=== PATIENT | female | born 1990 | race Caucasian/White ===

== ENCOUNTER 2024-06-16 17:42 | Observation (INO) | payer OTHER ==
[2024-06-16 18:35] VITALS: RESP 18
[2024-06-16] MEDS: ELECTROLYTE-148 SOLN 1,000 ML IV SCH (21:00)
[2024-06-16 21:25] VITALS: BMI 24.3
[2024-06-16 21:29] LABS: ABSOLUTE IMMATURE GRANULOCYTES 0.02 x10^3/uL (0.0-0.031); BASOPHILS # 0.01 x10^3/uL (0.01-0.08); EOSINOPHIL % 0.2 % (0.7-5.8); EOSINOPHILS # 0.01 x10^3/uL (0.04-0.36); HEMATOCRIT 35.7 % (34.1-44.9); HEMOGLOBIN 11.5 g/dL (11.2-15.7); MCHC 32.2 g/dl (32.2-35.5); MEAN CELL VOLUME 87.9 fl (79.4-94.8); MEAN PLT VOLUME 10.6 fl (9.4-12.3); MONOCYTE % 5.3 % (4.7-12.5); PLATELET COUNT 316 x10^3/uL (182-369); RDW 13.1 % (12.1-16.8)
[2024-06-16 21:30] LABS: PH,URINE 6.5 (5.0-8.0); URINE APPEARANCE CLEAR; URINE BILIRUBIN NEGATIVE (NEGATIVE); URINE COLOR YELLOW; URINE GLUCOSE (UA) NEGATIVE (NEGATIVE); URINE KETONE TRACE (NEGATIVE); URINE LEUK ESTERASE NEGATIVE (NEGATIVE); URINE NITRITE NEGATIVE (NEGATIVE); URINE PROTEIN NEGATIVE (NEGATIVE); URINE UROBILINOGEN 0.2 mg/dL (0.2-1.0)
[2024-06-16 21:35] LABS: INR 0.97 (0.83-1.09); PROTHROMBIN TIME (PATIENT) 10.7 SEC (9.7-13.0)
[2024-06-16 21:56] LABS: POTASSIUM 4.1 mmol/L (3.5-5.1)
[2024-06-16 21:58] LABS: BLOOD UREA NITROGEN 8.3 mg/dL (7-18)
[2024-06-16 22:02] LABS: CREATININE 0.3 mg/dL (0.55-1.3)
[2024-06-17 04:23] VITALS: TEMP 98.2
[2024-06-17 07:16] VITALS: BP 110/60; PULSE 65
== END 2024-06-17 10:00 | disposition home or self-care (01) ==
LOC: JDEL 17:42 → JLDR 20:00
PROVIDERS: ADMIT Obstetrics & Gynecology; ATTEND Obstetrics & Gynecology
PROC: 3E0337Z Introduction of Electrolytic and Water Balance Substance into Peripheral Vein, Percutaneous Approach (ICD-10-PCS; principal; 2024-06-16)
DX: O41.03X0 Oligohydramnios, third trimester, not applicable or unspecified (principal); Z3A.31 31 weeks gestation of pregnancy
CPT/HCPCS: 0241U-QW; 36415; 59025; 76819-TC; 80048; 81003; 85025; 85610; 85730; 86780; 86850; 86900; 86901; 87086; 96360; G0378

== ENCOUNTER 2024-07-06 13:50 | Inpatient (IN) | payer OTHER ==
[2024-07-06 14:40] LABS: URINE APPEARANCE CLEAR; URINE BILIRUBIN NEGATIVE (NEGATIVE); URINE COLOR YELLOW; URINE GLUCOSE (UA) NEGATIVE (NEGATIVE); URINE KETONE NEGATIVE (NEGATIVE); URINE LEUK ESTERASE NEGATIVE (NEGATIVE); URINE NITRITE NEGATIVE (NEGATIVE); URINE PROTEIN NEGATIVE (NEGATIVE); URINE UROBILINOGEN 0.2 mg/dL (0.2-1.0)
[2024-07-06 15:19] LABS: COCAINE, UR NEGATIVE (NEGATIVE); URINE AMPHETAMINES NEGATIVE (NEGATIVE); URINE BARBITURATES NEGATIVE (NEGATIVE); URINE BENZODIAZEPINES NEGATIVE (NEGATIVE)
[2024-07-06 15:20] LABS: METHADONE, UR NEGATIVE (NEGATIVE); OPIATES, URI NEGATIVE (NEGATIVE); PHENCYCLIDINE,URINE NEGATIVE (NEGATIVE)
[2024-07-06 15:31] VITALS: BMI 26.4
[2024-07-06 15:31] LABS: ABSOLUTE IMMATURE GRANULOCYTES 0.02 x10^3/uL (0.0-0.031); BASOPHILS # 0.02 x10^3/uL (0.01-0.08); EOSINOPHIL % 0.9 % (0.7-5.8); EOSINOPHILS # 0.06 x10^3/uL (0.04-0.36); HEMATOCRIT 38.7 % (34.1-44.9); HEMOGLOBIN 12.6 g/dL (11.2-15.7); MCHC 32.6 g/dl (32.2-35.5); MEAN CELL VOLUME 86.8 fl (79.4-94.8); MEAN PLT VOLUME 10.8 fl (9.4-12.3); MONOCYTE # 0.47 x10^3/uL (0.24-0.86); MONOCYTE % 7.2 % (4.7-12.5); PLATELET COUNT 339 x10^3/uL (182-369); RDW 13.5 % (12.1-16.8)
[2024-07-06 15:32] LABS: Reticulocyte % 2.52 % (0.5-1.7)
[2024-07-06 15:39] LABS: INR 0.95 (0.83-1.09); PROTHROMBIN TIME (PATIENT) 10.5 SEC (9.7-13.0)
[2024-07-06 15:42] LABS: ACTIVATED PTT 29.4 SECONDS (25.2-36.5)
[2024-07-06 15:50] LABS: CALCIUM 10.4 mg/dL (8.5-10.1)
[2024-07-06 15:51] LABS: BLOOD UREA NITROGEN 9.3 mg/dL (7-18)
[2024-07-06 15:54] LABS: CREATININE 0.5 mg/dL (0.55-1.3); URIC ACID 3.8 mg/dL (2.6-7.2)
[2024-07-06] MEDS: DINOPROSTONE 10 MG VAGINAL SUPPOSITORY VG STA (16:00)
[2024-07-06] MEDS: ACETAMINOPHEN 325 MG TABLET (FP) PO ONE (16:28)
[2024-07-06] MEDS: LABETALOL HCL 200 MG TABLET (FP) PO SCH (16:30)
[2024-07-06 16:53] LABS: HCV DIAGNOSTIC IN-HOUSE W/RFLX NON-REACTIVE (NONREACTIVE)
[2024-07-06] MEDS: ELECTROLYTE-148 SOLN 1,000 ML IV SCH (18:15)
[2024-07-06] MEDS ORDERED: AMPICILLIN SODIUM 2 GM VIAL ONE (18:17)
[2024-07-06] MEDS: AMPICILLIN - 2 GM in SODIUM CHLORIDE 100 ML IVPB ONE (18:20)
[2024-07-06] MEDS ORDERED: LIDOCAINE HCL 1% PRESERVATIVE FREE - 30ML VIAL ONE (21:24)
[2024-07-06] MEDS ORDERED: OXYTOCIN 20 UNITS in 0.9% NS 20 UNIT/1,000 ML INFUS.BAG IV ONE ×2 (21:24→21:29)
[2024-07-06] MEDS: OXYTOCIN 20 UNITS in 0.9% NS 20 UNIT/1,000 ML INFUS.BAG IV SCH (21:30)
[2024-07-06] MEDS ORDERED: BISACODYL 10 MG SUPP.RECT RC PRN (21:42)
[2024-07-06] MEDS ORDERED: ACETAMINOPHEN 325 MG TABLET (FP) PO PRN (21:42)
[2024-07-06] MEDS ORDERED: WITCH HAZEL 50% (TUCKS) 40 PAD/JAR PAD TP PRN (21:42)
[2024-07-06] MEDS ORDERED: BENZOCAINE 20% 57 GM BOTTLE TP PRN (21:42)
[2024-07-06] MEDS ORDERED: BENZOCAINE 28 GM HEMORRHOIDAL OINTMENT TP PRN (21:42)
[2024-07-06] MEDS ORDERED: METHYLERGONOVINE MALEATE 0.2 MG/1 ML AMP IM PRN (21:42)
[2024-07-06] MEDS ORDERED: LABETALOL HCL 200 MG TABLET (FP) ONE (22:09)
[2024-07-06] MEDS: AMPICILLIN - 1 GM in SODIUM CHLORIDE 100 ML IVPB SCH (22:51)
[2024-07-06] MEDS ORDERED: IBUPROFEN 600 MG TABLET (FP) PO ONE (23:09)
[2024-07-06] MEDS: IBUPROFEN 600 MG TABLET (FP) PO PRN (23:11)
[2024-07-06 23:54] LABS: HIV INTERPRETATION NEGATIVE (NEGATIVE)
[2024-07-07 07:44] LABS: ABSOLUTE IMMATURE GRANULOCYTES 0.03 x10^3/uL (0.0-0.031); BASOPHILS # 0.02 x10^3/uL (0.01-0.08); EOSINOPHIL % 0.2 % (0.7-5.8); EOSINOPHILS # 0.02 x10^3/uL (0.04-0.36); HEMATOCRIT 35.2 % (34.1-44.9); HEMOGLOBIN 11.4 g/dL (11.2-15.7); MCHC 32.4 g/dl (32.2-35.5); MEAN CELL VOLUME 86.7 fl (79.4-94.8); MEAN PLT VOLUME 10.8 fl (9.4-12.3); MONOCYTE # 0.66 x10^3/uL (0.24-0.86); MONOCYTE % 6.6 % (4.7-12.5); PLATELET COUNT 280 x10^3/uL (182-369); RDW 13.6 % (12.1-16.8)
[2024-07-07 15:08] LABS: CREATININE, URINE RANDOM < 13.0 mg/dL (30-150)
[2024-07-07 15:43] VITALS: RESP 18
[2024-07-07] MEDS ORDERED: SENNOSIDES/DOCUSATE COMBO (SENNA PLUS) TABLET (UD) PO PRN (22:00)
[2024-07-07 22:06] VITALS: TEMP 98.3
[2024-07-08 05:34] VITALS: BP 133/84; PULSE 67
[2024-07-11 12:31] LABS: POC NITRAZINE POS
== END 2024-07-08 13:30 | disposition home or self-care (01) | DRG 560 ==
LOC: JDEL 13:50 → JLDR 14:50 → J3W 07-07 00:32
PROVIDERS: ADMIT Student in an Organized Health Care Education/Training Program; ATTEND Student in an Organized Health Care Education/Training Program
PROC: 10E0XZZ Delivery of Products of Conception, External Approach (ICD-10-PCS; principal; 2024-07-06)
DX: O41.03X0 Oligohydramnios, third trimester, not applicable or unspecified (principal); O16.4 Unspecified maternal hypertension, complicating childbirth; Z3A.36 36 weeks gestation of pregnancy; Z37.0 Single live birth
CPT/HCPCS: 36415; 59409; 80048; 80307; 81003; 82570; 82977; 83010; 83986-QW; 84156; 84450; 84460; 84550; 85025; 85610; 85730; 86780; 86803; 86850; 86900; 86901; 87389